=== PATIENT | female | born 1985 | race Hispanic/Latino ===

== ENCOUNTER 2017-10-17 13:11 | Emergency (ER) | payer OTHER, MEDICAID ==
[~2017-10-17 13:11] MED LIST: TRIA1TAB3 PO
[2017-10-17 14:06] LABS: BASOPHILS % (AUTO) 0.6 % (0.0-5.0); EOSINOPHILS % (AUTO) 3.9 % (0.0-8.0); HEMATOCRIT 38.7 % (36-48); LYMPHOCYTES % (AUTO) 21.5 % (21.0-51.0); MEAN CORPUSCULAR HEMOGLOBIN 28.2 pg (27.0-33.0); MEAN CORPUSCULAR HGB CONC 33.8 g/dL (32.0-36.0); MEAN CORPUSCULAR VOLUME 83.3 fL (79-99); PLATELET COUNT (AUTO) 203 K/uL (130-400); RED BLOOD CELL COUNT(AUTO) 4.65 MIL/uL (4.00-5.50); RED CELL DISTRIBUTION WIDTH 14.3 % (11.0-15.5); WHITE BLOOD COUNT (AUTO) 7.6 K/uL (4.8-10.8)
[2017-10-17 14:18] LABS: CREATININE 0.8 mg/dL (0.5-1.5); POTASSIUM 3.8 mmol/L (3.5-5.1)
[2017-10-17 14:59] LABS: APPEARANCE,URINE Clear (CLEAR); BILIRUBIN,URINE Negative (NEGATIVE); COLOR,URINE Dark Yellow (YELLOW); GLUCOSE, URINE (UA) Negative (NEGATIVE); KETONES,URINE 15 mg/dL (NEGATIVE); LEUKOCYTE ESTERASE ,URINE Small (NEGATIVE); NITRATE,URINE Negative (NEGATIVE); OCCULT BLOOD,URINE Moderate (NEGATIVE); PROTEIN,URINE Negative (NEGATIVE)
[2017-10-17 15:50] LABS: BACTERIA,URINE Few /HPF (None Seen); MUCUS,URINE Many LPF (None Seen); RBC,URINE None Seen /HPF (0-1)
== END 2017-10-17 15:15 | disposition home or self-care (01) ==
LOC: EDH 13:11
DX: O20.0 Threatened abortion (principal); Z3A.08 8 weeks gestation of pregnancy; Z98.890 Other specified postprocedural states
CPT/HCPCS: 36415; 76817; 80048; 81001; 84702; 85025; 86900; 86901

== ENCOUNTER 2018-01-03 07:50 | Emergency (ER) | payer MEDICAID, OTHER ==
[2018-01-03] MEDS ORDERED: TETRACAINE HCL 0.5% 4 ML OPHTH SOLN ONE (08:15)
[2018-01-03] MEDS ORDERED: FLUORESCEIN SODIUM 0.6 MG STRIP ONE (08:16)
== END 2018-01-03 09:48 | disposition home or self-care (01) ==
LOC: EDH 07:50
DX: H57.13 Ocular pain, bilateral (principal); H57.8 Other specified disorders of eye and adnexa; I10 Essential (primary) hypertension; Z98.890 Other specified postprocedural states

== ENCOUNTER 2018-01-30 18:03 | Emergency (ER) | payer OTHER ==
[2018-01-30 18:37] LABS: BASOPHILS % (AUTO) 0.4 % (0.0-5.0); EOSINOPHILS % (AUTO) 3.1 % (0.0-8.0); HEMATOCRIT 38.1 % (36-48); LYMPHOCYTES % (AUTO) 21.7 % (21.0-51.0); MEAN CORPUSCULAR HEMOGLOBIN 28.7 pg (27.0-33.0); MEAN CORPUSCULAR HGB CONC 34.4 g/dL (32.0-36.0); MEAN CORPUSCULAR VOLUME 83.6 fL (79-99); MONOCYTES % (AUTO) 5.4 % (3.0-13.0); NEUTROPHILS % (AUTO) 69.4 % (40.0-77.0); PLATELET COUNT (AUTO) 226 K/uL (130-400); RED BLOOD CELL COUNT(AUTO) 4.55 MIL/uL (4.00-5.50); RED CELL DISTRIBUTION WIDTH 14.3 % (11.0-15.5); WHITE BLOOD COUNT (AUTO) 7.9 K/uL (4.8-10.8)
[2018-01-30 18:49] LABS: CREATININE 0.7 mg/dL (0.5-1.5); POTASSIUM 3.9 mmol/L (3.5-5.1)
== END 2018-01-30 19:30 | disposition home or self-care (01) ==
LOC: EDH 18:03
DX: O20.0 Threatened abortion (principal); Z3A.08 8 weeks gestation of pregnancy
CPT/HCPCS: 36415; 76801; 80048; 84702; 85025

== ENCOUNTER 2018-06-09 10:27 | Observation (INO) | payer OTHER, MEDICAID ==
[~2018-06-09] VITALS: Ht 162.6 cm; Wt 155.6 kg
[2018-06-09] MEDS ORDERED: IPRATROPIUM/ALBUTEROL SULFATE 3 ML SOLUTION IH ONE (11:40)
[2018-06-09 11:46] LABS: BASOPHILS % (AUTO) 0.2 % (0.0-5.0); EOSINOPHILS % (AUTO) 1.6 % (0.0-8.0); HEMATOCRIT 37.3 % (36-48); LYMPHOCYTES % (AUTO) 11.6 % (21.0-51.0); MEAN CORPUSCULAR HEMOGLOBIN 28.6 pg (27.0-33.0); MEAN CORPUSCULAR HGB CONC 33.9 g/dL (32.0-36.0); MEAN CORPUSCULAR VOLUME 84.4 fL (79-99); MONOCYTES % (AUTO) 3.9 % (3.0-13.0); NEUTROPHILS % (AUTO) 82.7 % (40.0-77.0); PLATELET COUNT (AUTO) 250 K/uL (130-400); RED BLOOD CELL COUNT(AUTO) 4.41 MIL/uL (4.00-5.50); RED CELL DISTRIBUTION WIDTH 14.7 % (11.0-15.5); WHITE BLOOD COUNT (AUTO) 12.5 K/uL (4.8-10.8)
[2018-06-09 11:59] LABS: CREATININE 0.7 mg/dL (0.5-1.5); POTASSIUM 4.2 mmol/L (3.5-5.1)
[2018-06-09 12:05] LABS: ALBUMIN 2.7 g/dL (3.5-5.0); BILIRUBIN,DIRECT 0.1 mg/dL (0.0-0.3); BILIRUBIN,TOTAL 0.4 mg/dL (0.2-1.0); TOTAL PROTEIN, SERUM 7.2 g/dL (6.0-8.3)
[2018-06-09 12:23] LABS: APPEARANCE,URINE Cloudy (CLEAR); BILIRUBIN,URINE Negative (NEGATIVE); COLOR,URINE Dark Yellow (YELLOW); GLUCOSE, URINE (UA) TRACE mg/dL (NEGATIVE); KETONES,URINE 15 mg/dL (NEGATIVE); LEUKOCYTE ESTERASE ,URINE Moderate (NEGATIVE); NITRATE,URINE Negative (NEGATIVE); OCCULT BLOOD,URINE Negative (NEGATIVE); PH,URINE 5.5 (5.0-8.0); PROTEIN,URINE Trace (NEGATIVE)
[2018-06-09 12:43] LABS: BACTERIA,URINE Few /HPF (None Seen); MUCUS,URINE Moderate LPF (None Seen)
[2018-06-09 12:44] LABS: RBC,URINE 0-1 /HPF (0-1)
[2018-06-09] MEDS ORDERED: AZITHROMYCIN 250 MG TABLET PO ONE (14:08)
[2018-06-09 15:56] VITALS: BP 128/71
[2018-06-09] MEDS ORDERED: DIPHENHYDRAMINE HCL 25 MG CAPSULE PO SCH (16:00)
== END 2018-06-09 16:55 | disposition home or self-care (01) ==
LOC: EDH 10:27 → LDH 14:39
PROVIDERS: ADMIT Obstetrics & Gynecology; ATTEND Obstetrics & Gynecology
DX: O99.512 Diseases of the respiratory system complicating pregnancy, second trimester (principal); R05 Cough; O99.612 Diseases of the digestive system complicating pregnancy, second trimester; O09.512 Supervision of elderly primigravida, second trimester; K21.9 Gastro-esophageal reflux disease without esophagitis; Z3A.25 25 weeks gestation of pregnancy
CPT/HCPCS: 36415; 80048; 80076; 81001; 85025; 87486; 87797; 87804 ×2; 94640; 99285; G0378 ×2; Q0163

== ENCOUNTER 2018-06-22 21:58 | Observation (INO) | payer OTHER, MEDICAID ==
[~2018-06-22] VITALS: Ht 162.6 cm; Wt 151.0 kg
[2018-06-22] MEDS ORDERED: LACTATED RINGERS 1000ML 1,000 ML IV PRN (22:54)
[2018-06-22] MEDS ORDERED: LACTATED RINGERS 1000ML 1,000 ML IV ONE (23:04)
[2018-06-23] MEDS ORDERED: ACETAMINOPHEN EXTRA STRENGTH 500 MG TABLET PO SCH (01:15)
[2018-06-23 02:17] LABS: APPEARANCE,URINE Clear (CLEAR); BILIRUBIN,URINE Negative (NEGATIVE); COLOR,URINE Yellow (YELLOW); GLUCOSE, URINE (UA) TRACE mg/dL (NEGATIVE); KETONES,URINE Negative (NEGATIVE); LEUKOCYTE ESTERASE ,URINE Small (NEGATIVE); NITRATE,URINE Negative (NEGATIVE); OCCULT BLOOD,URINE Negative (NEGATIVE); PROTEIN,URINE Negative (NEGATIVE)
[2018-06-23 02:47] LABS: BACTERIA,URINE Rare /HPF (None Seen); RBC,URINE 0-1 /HPF (0-1); SQUAMOUS EPITHELIAL CELL,UR Moderate /HPF (0-2); WBC,URINE 0-1 /HPF (0-1)
[2018-06-23] MEDS ORDERED: CEFTRIAXONE SODIUM 1 GM IVP SCH (06:30)
== END 2018-06-23 08:15 | disposition home or self-care (01) ==
LOC: EDH 21:58 → LDH 21:59
PROVIDERS: ADMIT Obstetrics & Gynecology; ATTEND Obstetrics & Gynecology
DX: O60.02 Preterm labor without delivery, second trimester (principal); O99.612 Diseases of the digestive system complicating pregnancy, second trimester; K21.9 Gastro-esophageal reflux disease without esophagitis; O24.112 Pre-existing type 2 diabetes mellitus, in pregnancy, second trimester; Z3A.27 27 weeks gestation of pregnancy
CPT/HCPCS: 81001; 99285; G0378 ×10; J0696; J7120 ×3; 96360

== ENCOUNTER 2018-07-24 15:11 | Observation (INO) | payer OTHER, MEDICAID ==
[2018-07-24 16:32] LABS: BASOPHILS % (AUTO) 0.4 % (0.0-5.0); EOSINOPHILS % (AUTO) 1.1 % (0.0-8.0); HEMATOCRIT 36.9 % (36-48); LYMPHOCYTES % (AUTO) 16.1 % (21.0-51.0); MEAN CORPUSCULAR HEMOGLOBIN 28.1 pg (27.0-33.0); MEAN CORPUSCULAR HGB CONC 34.2 g/dL (32.0-36.0); MEAN CORPUSCULAR VOLUME 82.2 fL (79-99); NEUTROPHILS % (AUTO) 78.4 % (40.0-77.0); PLATELET COUNT (AUTO) 223 K/uL (130-400); RED BLOOD CELL COUNT(AUTO) 4.49 MIL/uL (4.00-5.50); RED CELL DISTRIBUTION WIDTH 14.6 % (11.0-15.5); WHITE BLOOD COUNT (AUTO) 9.2 K/uL (4.8-10.8)
[2018-07-24 16:33] LABS: APPEARANCE,URINE Cloudy (CLEAR); BILIRUBIN,URINE Negative (NEGATIVE); COLOR,URINE Yellow (YELLOW); GLUCOSE, URINE (UA) Negative (NEGATIVE); KETONES,URINE 15 mg/dL (NEGATIVE); LEUKOCYTE ESTERASE ,URINE Large (NEGATIVE); NITRATE,URINE Negative (NEGATIVE); OCCULT BLOOD,URINE Negative (NEGATIVE); PH,URINE 6.5 (5.0-8.0); PROTEIN,URINE Negative (NEGATIVE)
[2018-07-24 16:40] LABS: BACTERIA,URINE Few /HPF (None Seen); CREATININE 0.7 mg/dL (0.5-1.5); MUCUS,URINE Moderate LPF (None Seen); POTASSIUM 4.1 mmol/L (3.5-5.1); RBC,URINE None Seen /HPF (0-1)
[2018-07-24 16:44] LABS: INR 0.87 (0.85-1.15); PARTIAL THROMBOPLASTIN TIME 27.5 SEC (26.3-35.5); PROTHROMBIN TIME 9.2 SEC (9.6-11.6)
[2018-07-24 16:46] LABS: ALBUMIN 2.4 g/dL (3.5-5.0); BILIRUBIN,TOTAL 0.3 mg/dL (0.2-1.0); TOTAL PROTEIN, SERUM 6.7 g/dL (6.0-8.3); URIC ACID 2.8 mg/dL (2.6-7.2)
== END 2018-07-24 18:24 | disposition home or self-care (01) ==
LOC: LDH 15:11
PROVIDERS: ADMIT Obstetrics & Gynecology; ATTEND Obstetrics & Gynecology
DX: O26.893 Other specified pregnancy related conditions, third trimester (principal); R51 Headache; Z3A.33 33 weeks gestation of pregnancy
CPT/HCPCS: 36415; 80053; 81001; 84550; 85025; 85384; 85610; 85730; G0378 ×4

== ENCOUNTER 2018-07-28 11:48 | Emergency (ER) | payer OTHER, MEDICAID ==
[2018-07-28] MEDS ORDERED: ACETAMINOPHEN 325 MG TAB ONE ×2 (13:32→14:16)
[2018-07-28 14:40] LABS: BASOPHILS % (AUTO) 0.5 % (0.0-5.0); EOSINOPHILS % (AUTO) 0.7 % (0.0-8.0); HEMATOCRIT 36.3 % (36-48); LYMPHOCYTES % (AUTO) 15.6 % (21.0-51.0); MEAN CORPUSCULAR HEMOGLOBIN 28.1 pg (27.0-33.0); MEAN CORPUSCULAR VOLUME 82.5 fL (79-99); MONOCYTES % (AUTO) 4.3 % (3.0-13.0); NEUTROPHILS % (AUTO) 78.9 % (40.0-77.0); PLATELET COUNT (AUTO) 228 K/uL (130-400); RED CELL DISTRIBUTION WIDTH 14.8 % (11.0-15.5); WHITE BLOOD COUNT (AUTO) 9.8 K/uL (4.8-10.8)
[2018-07-28 14:52] LABS: HCG,QUAL RESULT POSITIVE (NEGATIVE)
[2018-07-28 14:53] LABS: APPEARANCE,URINE Cloudy (CLEAR); BILIRUBIN,URINE Negative (NEGATIVE); COLOR,URINE Yellow (YELLOW); GLUCOSE, URINE (UA) >=1000 mg/dL (NEGATIVE); KETONES,URINE Trace mg/dL (NEGATIVE); LEUKOCYTE ESTERASE ,URINE Small (NEGATIVE); NITRATE,URINE Positive (NEGATIVE); OCCULT BLOOD,URINE Negative (NEGATIVE); PH,URINE 5.5 (5.0-8.0); PROTEIN,URINE POS 1+ (NEGATIVE)
[2018-07-28 15:01] LABS: AMPHET/METH SCREEN,URINE NEGATIVE (NEGATIVE); BARBITURATE SCREEN, URINE NEGATIVE (NEGATIVE); BENZODIAZEPINES SCREEN,URINE NEGATIVE (NEGATIVE); CANNABINOID SCREEN,URINE NEGATIVE (NEGATIVE); COCAINE SCREEN,URINE NEGATIVE (NEGATIVE); OPIATE SCREEN,URINE NEGATIVE (NEGATIVE); PHENCYCLIDINE SCREEN,URINE NEGATIVE (NEGATIVE)
[2018-07-28 15:12] LABS: CREATININE 0.8 mg/dL (0.5-1.5); POTASSIUM 4.3 mmol/L (3.5-5.1)
[2018-07-28 15:17] LABS: AMORPHOUS SEDIMENT,UR Moderate /LPF (None Seen); BACTERIA,URINE Moderate /HPF (None Seen); MUCUS,URINE Many LPF (None Seen); RBC,URINE None Seen /HPF (0-1)
== END 2018-07-28 16:02 | disposition home or self-care (01) ==
LOC: EDH 11:48
DX: O23.43 Unspecified infection of urinary tract in pregnancy, third trimester (principal); O16.3 Unspecified maternal hypertension, third trimester; O24.913 Unspecified diabetes mellitus in pregnancy, third trimester; R55 Syncope and collapse; Z3A.33 33 weeks gestation of pregnancy
CPT/HCPCS: 36415; 80048; 80305; 81001; 81025; 82550; 84484; 85025; 93005

== ENCOUNTER 2018-08-05 10:03 | Observation (INO) | payer OTHER, MEDICAID ==
[2018-08-05 10:32] LABS: APPEARANCE,URINE Clear (CLEAR); BILIRUBIN,URINE Negative (NEGATIVE); COLOR,URINE Yellow (YELLOW); GLUCOSE, URINE (UA) Negative (NEGATIVE); KETONES,URINE Negative (NEGATIVE); LEUKOCYTE ESTERASE ,URINE Moderate (NEGATIVE); NITRATE,URINE Negative (NEGATIVE); OCCULT BLOOD,URINE Negative (NEGATIVE); PROTEIN,URINE Trace (NEGATIVE)
[2018-08-05 11:07] LABS: BACTERIA,URINE Few /HPF (None Seen); RBC,URINE 0-1 /HPF (0-1); SQUAMOUS EPITHELIAL CELL,UR Few /HPF (0-2)
[2018-08-05] MEDS ORDERED: ACETAMINOPHEN EXTRA STRENGTH 500 MG TABLET PO SCH (13:00)
[2018-08-05 13:13] LABS: BASOPHILS % (AUTO) 0.3 % (0.0-5.0); EOSINOPHILS % (AUTO) 1.5 % (0.0-8.0); HEMATOCRIT 35.7 % (36-48); LYMPHOCYTES % (AUTO) 16.6 % (21.0-51.0); MEAN CORPUSCULAR HGB CONC 34.1 g/dL (32.0-36.0); MEAN CORPUSCULAR VOLUME 82.1 fL (79-99); MONOCYTES % (AUTO) 4.5 % (3.0-13.0); NEUTROPHILS % (AUTO) 77.1 % (40.0-77.0); PLATELET COUNT (AUTO) 208 K/uL (130-400); RED BLOOD CELL COUNT(AUTO) 4.35 MIL/uL (4.00-5.50); RED CELL DISTRIBUTION WIDTH 15.4 % (11.0-15.5); WHITE BLOOD COUNT (AUTO) 9.4 K/uL (4.8-10.8)
[2018-08-05 13:22] LABS: CREATININE 0.8 mg/dL (0.5-1.5); POTASSIUM 4.4 mmol/L (3.5-5.1)
[2018-08-05 13:25] LABS: INR 0.88 (0.85-1.15); PARTIAL THROMBOPLASTIN TIME 26.5 SEC (26.3-35.5); PROTHROMBIN TIME 9.3 SEC (9.6-11.6)
[2018-08-05 13:27] LABS: ALBUMIN 2.3 g/dL (3.5-5.0); BILIRUBIN,TOTAL 0.3 mg/dL (0.2-1.0); TOTAL PROTEIN, SERUM 6.1 g/dL (6.0-8.3); URIC ACID 3.6 mg/dL (2.6-7.2)
== END 2018-08-05 15:59 | disposition home or self-care (01) ==
LOC: EDH 10:03 → LDH 10:04
PROVIDERS: ADMIT Obstetrics & Gynecology; ATTEND Obstetrics & Gynecology
DX: O26.893 Other specified pregnancy related conditions, third trimester (principal); R51 Headache; R03.0 Elevated blood-pressure reading, without diagnosis of hypertension; Z3A.35 35 weeks gestation of pregnancy; Z79.01 Long term (current) use of anticoagulants
CPT/HCPCS: 36415; 76819; 80053; 81001; 84550; 85025; 85384; 85610; 85730; 99285; G0378 ×6

== ENCOUNTER 2018-08-25 14:30 | Observation (INO) | payer OTHER, MEDICAID ==
[~2018-08-25] VITALS: Ht 162.6 cm; Wt 159.2 kg
[2018-08-25 15:12] LABS: APPEARANCE,URINE Cloudy (CLEAR); BILIRUBIN,URINE Negative (NEGATIVE); COLOR,URINE Dark Yellow (YELLOW); GLUCOSE, URINE (UA) 500 mg/dL (NEGATIVE); KETONES,URINE Trace mg/dL (NEGATIVE); LEUKOCYTE ESTERASE ,URINE Moderate (NEGATIVE); NITRATE,URINE Negative (NEGATIVE); OCCULT BLOOD,URINE Negative (NEGATIVE); PROTEIN,URINE POS 1+ (NEGATIVE)
[2018-08-25 15:31] LABS: BACTERIA,URINE Moderate /HPF (None Seen); MUCUS,URINE Many LPF (None Seen); RBC,URINE None Seen /HPF (0-1); SQUAMOUS EPITHELIAL CELL,UR Moderate /HPF (0-2)
[2018-08-25] MEDS ORDERED: LACTATED RINGERS 1000ML 1,000 ML IV SCH (15:45)
[2018-08-25] MEDS ORDERED: CEFTRIAXONE SODIUM 1 GM IV ONE (17:00)
== END 2018-08-25 17:50 | disposition home or self-care (01) ==
LOC: LDH 14:30
PROVIDERS: ADMIT Obstetrics & Gynecology; ATTEND Obstetrics & Gynecology
DX: O99.89 Other specified diseases and conditions complicating pregnancy, childbirth and the puerperium (principal); M54.5 Low back pain; R10.2 Pelvic and perineal pain; O26.893 Other specified pregnancy related conditions, third trimester; O36.8130 Decreased fetal movements, third trimester, not applicable or unspecified; O09.523 Supervision of elderly multigravida, third trimester; Z3A.36 36 weeks gestation of pregnancy
CPT/HCPCS: 76819; 81001; 82948; 96365; G0378 ×3; J0696; J7120; 96360

== ENCOUNTER 2018-08-27 15:33 | Observation (INO) | payer OTHER, MEDICAID ==
[~2018-08-27] VITALS: Ht 162.6 cm; Wt 161.0 kg
[2018-08-27 17:27] LABS: BASOPHILS % (AUTO) 0.1 % (0.0-5.0); EOSINOPHILS % (AUTO) 1.3 % (0.0-8.0); HEMATOCRIT 34.9 % (36-48); LYMPHOCYTES % (AUTO) 15.2 % (21.0-51.0); MEAN CORPUSCULAR HEMOGLOBIN 27.2 pg (27.0-33.0); MEAN CORPUSCULAR HGB CONC 33.2 g/dL (32.0-36.0); MEAN CORPUSCULAR VOLUME 81.9 fL (79-99); MONOCYTES % (AUTO) 4.1 % (3.0-13.0); NEUTROPHILS % (AUTO) 79.3 % (40.0-77.0); PLATELET COUNT (AUTO) 188 K/uL (130-400); RED BLOOD CELL COUNT(AUTO) 4.26 MIL/uL (4.00-5.50); RED CELL DISTRIBUTION WIDTH 15.3 % (11.0-15.5); WHITE BLOOD COUNT (AUTO) 9.6 K/uL (4.8-10.8)
[2018-08-27 17:35] LABS: APPEARANCE,URINE Cloudy (CLEAR); BILIRUBIN,URINE Negative (NEGATIVE); COLOR,URINE Yellow (YELLOW); GLUCOSE, URINE (UA) Negative (NEGATIVE); KETONES,URINE Trace mg/dL (NEGATIVE); LEUKOCYTE ESTERASE ,URINE Moderate (NEGATIVE); NITRATE,URINE Negative (NEGATIVE); OCCULT BLOOD,URINE Negative (NEGATIVE); PROTEIN,URINE POS 1+ (NEGATIVE)
[2018-08-27 17:40] LABS: CREATININE 0.8 mg/dL (0.5-1.5); POTASSIUM 3.8 mmol/L (3.5-5.1)
[2018-08-27 17:43] LABS: INR 0.86 (0.85-1.15); PARTIAL THROMBOPLASTIN TIME 25.8 SEC (26.3-35.5); PROTHROMBIN TIME 9.1 SEC (9.6-11.6)
[2018-08-27 17:44] LABS: ALBUMIN 2.3 g/dL (3.5-5.0); BILIRUBIN,TOTAL 0.4 mg/dL (0.2-1.0); TOTAL PROTEIN, SERUM 6.2 g/dL (6.0-8.3); URIC ACID 3.6 mg/dL (2.6-7.2)
[2018-08-27 18:32] LABS: BACTERIA,URINE Few /HPF (None Seen); RBC,URINE 0-1 /HPF (0-1)
[2018-08-27 18:33] LABS: MUCUS,URINE Moderate LPF (None Seen); SQUAMOUS EPITHELIAL CELL,UR Moderate /HPF (0-2); YEAST,URINE BUDDING Few /HPF (None Seen)
[2018-08-29 08:19] LABS: HEPATITIS Bs ANTIGEN SCREEN P Negative (Negative)
== END 2018-08-27 18:42 | disposition home or self-care (01) ==
LOC: LDH 15:33
PROVIDERS: ADMIT Obstetrics & Gynecology; ATTEND Obstetrics & Gynecology
DX: O12.03 Gestational edema, third trimester (principal); O99.613 Diseases of the digestive system complicating pregnancy, third trimester; K21.9 Gastro-esophageal reflux disease without esophagitis; O09.523 Supervision of elderly multigravida, third trimester; Z3A.38 38 weeks gestation of pregnancy; Z79.01 Long term (current) use of anticoagulants
CPT/HCPCS: 36415; 80053; 81001; 84550; 85025; 85384; 85610; 85730; 86592; 86850; 86900; 86901; 87340; G0378 ×4

== ENCOUNTER 2018-10-21 05:30 | Day surgery (SDC) | payer OTHER, MEDICAID ==
[2018-10-20 10:53] VITALS: BP 155/81
[2018-10-20 11:12] LABS: BASOPHILS % (AUTO) 0.5 % (0.0-5.0); EOSINOPHILS % (AUTO) 5.6 % (0.0-8.0); HEMATOCRIT 36.4 % (36-48); LYMPHOCYTES % (AUTO) 27.9 % (21.0-51.0); MEAN CORPUSCULAR HEMOGLOBIN 27.3 pg (27.0-33.0); MEAN CORPUSCULAR VOLUME 80.3 fL (79-99); MONOCYTES % (AUTO) 4.4 % (3.0-13.0); NEUTROPHILS % (AUTO) 61.6 % (40.0-77.0); PLATELET COUNT (AUTO) 235 K/uL (130-400); RED BLOOD CELL COUNT(AUTO) 4.53 MIL/uL (4.00-5.50); RED CELL DISTRIBUTION WIDTH 14.7 % (11.0-15.5); WHITE BLOOD COUNT (AUTO) 6.9 K/uL (4.8-10.8)
[~2018-10-21] VITALS: Ht 162.6 cm; Wt 140.1 kg
[2018-10-21] VITALS (19 sets, daily range): BP systolic 122–148; BP diastolic 67–87
[~2018-10-21 05:30] MED LIST changes: +LACTATED RINGERS 1000ML 1,000 ML IV SCH; -TRIA1TAB3 PO
--- NOTE | 2018-10-21 06:08 | NUR ---
VALUABLES: CLOTHING, JEWELRY - ONE WHITE COLOR PAIR OF EARRINGS, 2 WHITE COLOR COATED RINGS, CELL PHONE AND PURSE GIVEN TO SPOUSE.
[2018-10-21] MEDS ORDERED: PROPOFOL 10 MG/ML 20ML VIAL IV ONE (06:37)
[2018-10-21] MEDS ORDERED: LIDOCAINE PF 2% 5ML ABBOJECT ONE (06:37)
[2018-10-21] MEDS ORDERED: ONDANSETRON HCL 4 MG/2 ML VIAL ONE (06:38)
[2018-10-21] MEDS ORDERED: MIDAZOLAM HCL 1 MG/ML 2ML VIAL ONE (06:38)
[2018-10-21] MEDS ORDERED: ROCURONIUM 10MG/1ML SYR 10 MG/ML ML ONE (06:38)
[2018-10-21] MEDS ORDERED: FENTANYL CITRATE PF 50 MCG/1 ML 2ML VIAL ONE ×2 (06:40→07:06)
[2018-10-21] MEDS ORDERED: MEPERIDINE-PF 25 MG/ML SYG ONE ×2 (07:45→07:54)
[2018-10-21] MEDS ORDERED: IPRATROPIUM/ALBUTEROL SULFATE 3 ML SOLUTION IH ONE (08:22)
--- NOTE | 2018-10-21 08:45 | NUR ---
ASSESSMENT RECEIVED PT FROM JVOI RN. PT DOING WELL. BAND AID X2 DRY AND INTACT. OB PAD WITH SCANT BLEEDING.
--- NOTE | 2018-10-21 09:40 | NUR ---
DISCHARGE ORAL AND WRITTEN DISCHARGE INSTRUCTIONS GIVEN TO PT AND PTS . PRESCRIPTION GIVEN TO . NO OTHER QUESTIONS AT THIS TIME.
== END 2018-10-21 09:40 | disposition home or self-care (01) ==
LOC: DAH 05:30
PROVIDERS: ATTEND Obstetrics & Gynecology
DX: Z30.2 Encounter for sterilization (principal); K21.9 Gastro-esophageal reflux disease without esophagitis; Z80.49 Family history of malignant neoplasm of other genital organs; Z82.49 Family history of ischemic heart disease and other diseases of the circulatory system; Z83.3 Family history of diabetes mellitus; E66.01 Morbid (severe) obesity due to excess calories; Z68.43 Body mass index [BMI] 50.0-59.9, adult; Z79.899 Other long term (current) drug therapy; O13.9 Gestational [pregnancy-induced] hypertension without significant proteinuria, unspecified trimester; O24.419 Gestational diabetes mellitus in pregnancy, unspecified control
CPT/HCPCS: 36415; 58670; 84702; 85025; 86850; 86900; 86901; 94640; A4215; A4351; A4452; A4606; C1769 ×2; J2001; J2175 ×2; J2250; J2405; J2704; J3010 ×2; J7120 ×2

== ENCOUNTER → 2019-04-30 | Outpatient (CLI) | payer OTHER ==
[2019-04-30 11:31] LABS: HEMATOCRIT 39.1 % (36-48); MEAN CORPUSCULAR HEMOGLOBIN 26.5 pg (27.0-33.0); MEAN CORPUSCULAR HGB CONC 32.9 g/dL (32.0-36.0); MEAN CORPUSCULAR VOLUME 80.5 fL (79-99); PLATELET COUNT (AUTO) 213 K/uL (130-400); RED BLOOD CELL COUNT(AUTO) 4.85 MIL/uL (4.00-5.50); RED CELL DISTRIBUTION WIDTH 15.3 % (11.0-15.5); WHITE BLOOD COUNT (AUTO) 8.2 K/uL (4.8-10.8)
[2019-04-30 11:40] LABS: HEMOGLOBIN A1C 5.5 % (4.0-6.0)
[2019-04-30 11:47] LABS: NEUTROPHILS % (AUTO) 72.8 % (40.0-77.0)
[2019-04-30 11:48] LABS: BASOPHILS % (AUTO) 0.3 % (0.0-5.0); EOSINOPHILS % (AUTO) 3.8 % (0.0-8.0); LYMPHOCYTES % (AUTO) 18.7 % (21.0-51.0); MONOCYTES % (AUTO) 4.4 % (3.0-13.0)
[2019-04-30 11:51] LABS: ALBUMIN 3.6 g/dL (3.5-5.0); BILIRUBIN,TOTAL 0.5 mg/dL (0.2-1.0); CREATININE 0.8 mg/dL (0.5-1.5); POTASSIUM 4.4 mmol/L (3.5-5.1); THYROID STIMULATING HORMONE 1.11 uIU/mL (0.36-3.74); TOTAL PROTEIN, SERUM 7.5 g/dL (6.0-8.3)
== END | disposition home or self-care (01) ==
LOC: LAB 10:47
PROVIDERS: ATTEND Nurse Practitioner Adult Health
DX: Z00.00 Encounter for general adult medical examination without abnormal findings (principal)
CPT/HCPCS: 36415; 80053; 80061; 82306; 83036; 84443; 85025

== ENCOUNTER → 2019-05-06 | Outpatient (CLI) | payer OTHER | END | disposition home or self-care (01) | LOC: RAH 13:22 | PROVIDERS: ATTEND Nurse Practitioner Adult Health | DX: E04.9 Nontoxic goiter, unspecified (principal) | CPT/HCPCS: 76536 ==

== ENCOUNTER → 2019-06-08 | Outpatient (CLI) | payer OTHER ==
[~2019-06-08] MED LIST changes: +IOHEXOL-350 50ML VIAL IV ONE; -LACTATED RINGERS 1000ML 1,000 ML IV SCH
== END | disposition home or self-care (01) ==
LOC: RAH 13:48
PROVIDERS: ATTEND Nurse Practitioner Adult Health
DX: R51 Headache (principal)
CPT/HCPCS: 70470; Q9967

== ENCOUNTER 2019-06-23 11:38 | Emergency (ER) | payer OTHER ==
[2019-06-23] MEDS ORDERED: KETOROLAC TROMETHAMINE 60 MG/2 ML VIAL ONE (11:55)
[2019-06-23] MEDS ORDERED: LIDOCAINE 5% TOPICAL PATCH TP ONE (11:56)
== END 2019-06-23 12:59 | disposition home or self-care (01) ==
LOC: EDH 11:38
DX: S23.3XXA Sprain of ligaments of thoracic spine, initial encounter (principal); I10 Essential (primary) hypertension; V49.49XA Driver injured in collision with other motor vehicles in traffic accident, initial encounter; Y93.89 Activity, other specified; Y92.89 Other specified places as the place of occurrence of the external cause; Y99.8 Other external cause status
CPT/HCPCS: 81025; 96372; 99283; J1885

== ENCOUNTER → 2019-08-22 | Outpatient (CLI) | payer OTHER | END | disposition home or self-care (01) | LOC: SHCH 08:29 | PROVIDERS: ATTEND Internal Medicine Cardiovascular Disease | DX: R00.2 Palpitations (principal) | CPT/HCPCS: 93306 ==

== ENCOUNTER 2019-09-05 20:41 | Emergency (ER) | payer OTHER ==
[2019-09-05] MEDS ORDERED: ACETAMINOPHEN-CODEINE 300/30MG TAB ONE (21:00)
[2019-09-05] MEDS ORDERED: CEFTRIAXONE SODIUM 1 GM ONE (21:00)
[2019-09-05] MEDS ORDERED: LIDOCAINE HCL-MPF 1% 2ML VIAL ONE (21:00)
[2019-09-05] MEDS ORDERED: KETOROLAC TROMETHAMINE 60 MG/2 ML VIAL ONE (21:00)
== END 2019-09-05 21:34 | disposition home or self-care (01) ==
LOC: EDH 20:41
DX: K02.9 Dental caries, unspecified (principal); I10 Essential (primary) hypertension
CPT/HCPCS: 96372 ×2; 99284; J0696; J1885; J3490

== ENCOUNTER → 2019-10-14 | Outpatient (CLI) | payer OTHER ==
[2019-10-14 08:48] LABS: BASOPHILS % (AUTO) 0.3 % (0.0-5.0); HEMATOCRIT 38.7 % (36-48); LYMPHOCYTES % (AUTO) 20.9 % (21.0-51.0); MEAN CORPUSCULAR HEMOGLOBIN 23.8 pg (27.0-33.0); MEAN CORPUSCULAR VOLUME 79.5 fL (79-99); MONOCYTES % (AUTO) 5.4 % (3.0-13.0); NEUTROPHILS % (AUTO) 72.1 % (40.0-77.0); PLATELET COUNT (AUTO) 261 K/uL (130-400); RED BLOOD CELL COUNT(AUTO) 4.87 MIL/uL (4.00-5.50); RED CELL DISTRIBUTION WIDTH 15.9 % (11.0-15.5); WHITE BLOOD COUNT (AUTO) 9.7 K/uL (4.8-10.8)
[2019-10-14 09:17] LABS: ALBUMIN 3.5 g/dL (3.5-5.0); BILIRUBIN,TOTAL 0.7 mg/dL (0.2-1.0); CREATININE 0.9 mg/dL (0.5-1.5); POTASSIUM 3.4 mmol/L (3.5-5.1); THYROID STIMULATING HORMONE 0.99 uIU/mL (0.36-3.74); TOTAL PROTEIN, SERUM 7.3 g/dL (6.0-8.3)
== END | disposition home or self-care (01) ==
LOC: LAB 08:08
PROVIDERS: ATTEND Nurse Practitioner Adult Health
DX: Z00.00 Encounter for general adult medical examination without abnormal findings (principal); M60.9 Myositis, unspecified; M25.50 Pain in unspecified joint
CPT/HCPCS: 36415; 80053; 82550; 84443; 85025; 86038; 86140; 86215; 86235; 86431

== ENCOUNTER 2020-02-09 05:46 | Observation (INO) | payer OTHER ==
[2020-02-08 12:07] LABS: BASOPHILS % (AUTO) 0.3 % (0.0-5.0); EOSINOPHILS % (AUTO) 1.6 % (0.0-8.0); HEMATOCRIT 37.5 % (36-48); LYMPHOCYTES % (AUTO) 20.1 % (21.0-51.0); MEAN CORPUSCULAR HEMOGLOBIN 23.9 pg (27.0-33.0); MEAN CORPUSCULAR HGB CONC 30.1 g/dL (32.0-36.0); MEAN CORPUSCULAR VOLUME 79.4 fL (79-99); MONOCYTES % (AUTO) 4.7 % (3.0-13.0); NEUTROPHILS % (AUTO) 72.9 % (40.0-77.0); PLATELET COUNT (AUTO) 215 K/uL (130-400); RED BLOOD CELL COUNT(AUTO) 4.72 MIL/uL (4.00-5.50); RED CELL DISTRIBUTION WIDTH 14.9 % (11.0-15.5)
[2020-02-08 12:59] VITALS: BP 143/89
[2020-02-09] VITALS (24 sets, daily range): BP systolic 101–127; BP diastolic 54–72
[~2020-02-09] VITALS: Ht 162.6 cm; Wt 149.2 kg
[~2020-02-09 05:46] MED LIST changes: +AMLO2.5T4 PO; +BISACODYL 10 MG SUPP.RECT RC PRN; +ERGO500014 PO; -IOHEXOL-350 50ML VIAL IV ONE; +IRBE300T18 PO; +MEPERIDINE-PF 75 MG/ML SYG IM PRN; +METO-409 PO; +ONDANSETRON HCL 4 MG/2 ML VIAL IVP PRN; +PROMETHAZINE HCL 25 MG/ML 1ML AMPULE IM PRN
[2020-02-09] MEDS ORDERED: CEFAZOLIN SODIUM 1 GM VIAL ONE (07:20)
[2020-02-09] MEDS: LACTATED RINGERS 1000ML 1,000 ML IV SCH ×3 (07:51→10:35)
[2020-02-09] MEDS ORDERED: CEFAZOLIN 3GM /D5W 100ML 100 ML IV PRN (08:00)
[2020-02-09] MEDS ORDERED: LIDOCAINE PF 2% 5ML ABBOJECT ONE ×2 (08:54→08:56)
[2020-02-09] MEDS ORDERED: PROPOFOL 10 MG/ML 20ML VIAL IV ONE (08:55)
[2020-02-09] MEDS ORDERED: GLYCOPYRROLATE 1 MG/5 ML SYRINGE ONE (08:55)
[2020-02-09] MEDS ORDERED: ROCURONIUM 10MG/1ML SYR 10 MG/ML ML ONE (08:55)
[2020-02-09] MEDS ORDERED: NEOSTIGMINE 5MG/5ML SYR IV ONE (08:55)
[2020-02-09] MEDS ORDERED: MIDAZOLAM HCL 1 MG/ML 2ML VIAL ONE (08:55)
[2020-02-09] MEDS ORDERED: ONDANSETRON HCL 4 MG/2 ML VIAL ONE (08:55)
[2020-02-09] MEDS ORDERED: FENTANYL CITRATE PF 50 MCG/1 ML 2ML VIAL ONE ×2 (08:56→10:19)
[2020-02-09] MEDS ORDERED: SUCCINYLCHOLINE CHLORIDE 20 MG/ML 10 ML VIAL ONE (09:05)
[2020-02-09] MEDS ORDERED: MEPERIDINE-PF 25 MG/ML SYG ONE ×2 (10:58→11:09)
[2020-02-09] MEDS ORDERED: MEPERIDINE-PF 100 MG/ML SYG ONE ×3 (12:01→23:41)
[2020-02-09] MEDS: PROMETHAZINE HCL 25 MG/ML 1ML AMPULE IM PRN ×3 (12:04→23:44)
[2020-02-09] MEDS: ACETAMINOPHEN-CODEINE 300/30MG TAB PO PRN (13:38)
[2020-02-09] MEDS: DEXTROSE 5 %-0.45 % NACL 1,000 ML IV SCH (18:48)
--- NOTE | 2020-02-09 19:45 | NUR ---
KURT ANDRÉS REMOVED, TOO TIGHT AND UNCOMFORTABLE Addendum: 02/10/20 at 0324 by ARIEL AGUILAR LVN Amended: Links added.
--- NOTE | 2020-02-09 23:57 | NUR ---
MEDICATED WITH 75 MG DEMEROL IM , 25 MG WASTED, GIVEN WITH PHENERGAN 25 MG IM
[2020-02-10] MEDS: DEXTROSE 5 %-0.45 % NACL 1,000 ML IV SCH (00:48)
[2020-02-10 03:55] VITALS: BP 104/57
[2020-02-10 07:27] VITALS: BP 113/72
[2020-02-10 08:14] LABS: MEAN CORPUSCULAR HEMOGLOBIN 24.2 pg (27.0-33.0); MEAN CORPUSCULAR HGB CONC 30.3 g/dL (32.0-36.0); MEAN CORPUSCULAR VOLUME 79.8 fL (79-99); RED BLOOD CELL COUNT(AUTO) 4.01 MIL/uL (4.00-5.50); RED CELL DISTRIBUTION WIDTH 14.8 % (11.0-15.5); WHITE BLOOD COUNT (AUTO) 10.6 K/uL (4.8-10.8)
[2020-02-10] MEDS: DOCUSATE SODIUM 100 MG CAP PO PRN ×2 (08:32→21:23)
[2020-02-10] MEDS: HYDROCODONE/ACETAMINOPHEN 5/325 MG TAB PO PRN ×2 (08:32→16:03)
[2020-02-10] MEDS: SIMETHICONE 80 MG TAB.CHEW PO PRN ×3 (08:32→21:23)
[2020-02-10] MEDS: IBUPROFEN 600 MG TABLET PO PRN ×2 (11:21→21:25)
[2020-02-10 11:44] VITALS: BP 117/72
[2020-02-10 15:23] VITALS: BP 113/65
[2020-02-10 19:28] VITALS: BP 117/68
--- NOTE | 2020-02-10 20:00 | NUR ---
ASSESSMENT DONE AND PATIENT STATES ONLY HAVING MILD CRAMPING AT THIS TIME. INSTRUCTED PATIENT THAT SHE WILL BE MEDICATED WITH MOTRIN WITH HER EVENING MEDS. PATIENT HAS 2+ EDEMA TO LOWER EXTREMITIES. LOCHIA IS SMALL AND FUNDUS IS FIRM WITH NEGATIVE BASHIR'S SIGN. Addendum: 02/11/20 at 0312 by CHIQUI BRIONES RN CHARTED IN ERROR
--- NOTE | 2020-02-10 20:10 | NUR ---
PATIENT ASSESSED AND WAS INFORMED ON NEED TO VOID AND MEASURE RESIDUAL AND INDICATED SHE HAD JUST VOIDED 2 HOURS EARLIER AND WAS NOT DUE UNTIL 2200. PATIENT OTHERWISE STABLE.
--- NOTE | 2020-02-10 22:00 | NUR ---
PATIENT VOIDED 100CC AND HAD 100CC RESIDUAL. WALKER CATHETER CONNECTED AND DRESSING CHANGE DONE. SUPRAPUBIC AREA CLEANED WITH ALCOHOL SWABS AND DRAIN SPONGES APPLIED AND TAPED WITH PAPER TAPE.
[2020-02-10 23:48] VITALS: BP 120/63
--- NOTE | 2020-02-11 00:30 | NUR ---
PATIENT RESTING AND DENIES PAIN.
[2020-02-11 03:39] VITALS: BP 120/71
[2020-02-11 07:26] VITALS: BP 116/59
--- NOTE | 2020-02-11 08:10 | NUR ---
LUAN CLEMENT NP ROUNDING ON PATIENT. DISCHARGE POC DISCUSSED WITH PATIENT. PATIENT OKAY FOR DISCHARGE.
[2020-02-11] MEDS: DOCUSATE SODIUM 100 MG CAP PO PRN (09:15)
[2020-02-11] MEDS: SIMETHICONE 80 MG TAB.CHEW PO PRN (09:15)
[2020-02-11] MEDS: IBUPROFEN 600 MG TABLET PO PRN (09:16)
--- NOTE | 2020-02-11 09:50 | NUR ---
ASSESSMENT DONE AT 0800. WALKER CATHETER DISCONNECTED FROM WALKER BAG. REEDUCATED PATIENT ON BLADDER TRAINING. POSITIVE PATIENT TEACH BACK UTILIZED.
[2020-02-11] MEDS: ACETAMINOPHEN-CODEINE 300/30MG TAB PO PRN (11:02)
[2020-02-11 11:24] VITALS: BP 126/67
--- NOTE | 2020-02-11 11:50 | NUR ---
PATIENT REPORTS VOIDING 250ML AND 0 RESIDUAL FROM SUPRAPUBIC CATHETER. DISCHARGE INFORMATION. REVIEWED WITH PATIENT. DRESSING CHANGE AND INCISION CARE REVIEWED WITH PATIENT. PATIENT VOICED UNDERSTANDING ON ALL INFORMATION.
--- NOTE | 2020-02-11 12:25 | NUR ---
PATIENT LEFT UNIT VIA WHEELCHAIR WITH BELONGINGS IN HAND. PERSONAL VEHICLE USED FOR TRANSPORTATION. NO COMPLAINTS OR CONCERNS ADDRESSED FROM PATIENT ON DISCHARGE.
== END 2020-02-11 12:25 | disposition home or self-care (01) ==
LOC: DAH 05:46 → WSH 11:50 → DAH 18:00 → WSH 20:00
PROVIDERS: ADMIT Obstetrics & Gynecology; ATTEND Obstetrics & Gynecology
DX: N92.1 Excessive and frequent menstruation with irregular cycle (principal); N92.4 Excessive bleeding in the premenopausal period; N39.3 Stress incontinence (female) (male); R87.619 Unspecified abnormal cytological findings in specimens from cervix uteri; N94.6 Dysmenorrhea, unspecified; K46.9 Unspecified abdominal hernia without obstruction or gangrene; I10 Essential (primary) hypertension; K21.9 Gastro-esophageal reflux disease without esophagitis; G43.909 Migraine, unspecified, not intractable, without status migrainosus; Z86.32 Personal history of gestational diabetes; Z79.899 Other long term (current) drug therapy
CPT/HCPCS: 36415 ×2; 51040; 57288; 58263; 84703; 85025; 85027; 86850; 86900; 86901; 96372; A4215; A4221; A4222; A4223; A4344; A4606; A4663; A4930 ×2; A6260; C1771; G0168; G0378 ×39; J0330; J0690; J2001 ×2; J2175 ×5; J2250; J2405; J2550 ×3; J2704; J2710; J3010 ×2; J3490; J7120 ×2

== ENCOUNTER → 2020-03-14 | Outpatient (CLI) | payer OTHER | END | disposition home or self-care (01) | LOC: RAH 11:09 | PROVIDERS: ATTEND Nurse Practitioner Adult Health | DX: N28.89 Other specified disorders of kidney and ureter (principal) ==

== ENCOUNTER 2020-05-03 09:15 | Emergency (ER) | payer OTHER ==
[~2020-05-03 09:15] MED LIST changes: -BISACODYL 10 MG SUPP.RECT RC PRN; -MEPERIDINE-PF 75 MG/ML SYG IM PRN; -ONDANSETRON HCL 4 MG/2 ML VIAL IVP PRN; -PROMETHAZINE HCL 25 MG/ML 1ML AMPULE IM PRN
== END 2020-05-03 11:20 | disposition home or self-care (01) ==
LOC: EDH 09:15
DX: U07.1 COVID-19 (principal); J06.9 Acute upper respiratory infection, unspecified; I10 Essential (primary) hypertension; Z90.710 Acquired absence of both cervix and uterus
CPT/HCPCS: 87426; 99283; U0003

== ENCOUNTER → 2020-10-05 | Outpatient (CLI) | payer OTHER ==
[2020-10-05 09:20] LABS: BASOPHILS % (AUTO) 0.3 % (0.0-5.0); EOSINOPHILS % (AUTO) 1.3 % (0.0-8.0); HEMATOCRIT 44.5 % (36-48); LYMPHOCYTES % (AUTO) 18.2 % (21.0-51.0); MEAN CORPUSCULAR HEMOGLOBIN 26.9 pg (27.0-33.0); MEAN CORPUSCULAR HGB CONC 31.5 g/dL (32.0-36.0); MEAN CORPUSCULAR VOLUME 85.4 fL (79-99); MONOCYTES % (AUTO) 4.1 % (3.0-13.0); NEUTROPHILS % (AUTO) 75.7 % (40.0-77.0); PLATELET COUNT (AUTO) 220 K/uL (130-400); RED BLOOD CELL COUNT(AUTO) 5.21 MIL/uL (4.00-5.50); WHITE BLOOD COUNT (AUTO) 9.3 K/uL (4.8-10.8)
[2020-10-05 09:39] LABS: ALBUMIN 3.7 g/dL (3.5-5.0); BILIRUBIN,TOTAL 0.6 mg/dL (0.2-1.0); CREATININE 0.9 mg/dL (0.5-1.5); CRP QUANTITATIVE 13.8 mg/L (0.00-9.0); POTASSIUM 4.2 mmol/L (3.5-5.1); TOTAL PROTEIN, SERUM 7.7 g/dL (6.0-8.3)
[2020-10-05 10:34] LABS: ERYTHROCYTE SEDIMENTATION RATE 35 MM/HR (0-20)
== END | disposition home or self-care (01) ==
LOC: LAB 08:14
PROVIDERS: ATTEND Internal Medicine
DX: M06.4 Inflammatory polyarthropathy (principal); R79.82 Elevated C-reactive protein (CRP)
CPT/HCPCS: 36415; 80053; 82306; 85025; 85651; 86140; 86200; 86431; 86812

== ENCOUNTER 2021-01-19 00:18 | Emergency (ER) | payer OTHER ==
[~2021-01-19 00:18] MED LIST changes: -ERGO500014 PO; +ERGO500093 PO
== END 2021-01-19 01:46 | disposition home or self-care (01) ==
LOC: EDH 00:18
DX: G43.009 Migraine without aura, not intractable, without status migrainosus (principal); F41.1 Generalized anxiety disorder; I10 Essential (primary) hypertension; F31.9 Bipolar disorder, unspecified; Z90.710 Acquired absence of both cervix and uterus
CPT/HCPCS: 99281

== ENCOUNTER → 2021-02-21 | Outpatient (CLI) | payer OTHER ==
[~2021-02-21] MED LIST changes: +ERGO500014 PO; -ERGO500093 PO
[2021-02-21 09:52] LABS: BASOPHILS % (AUTO) 0.4 % (0.0-5.0); EOSINOPHILS % (AUTO) 1.2 % (0.0-8.0); HEMATOCRIT 41.8 % (36-48); LYMPHOCYTES % (AUTO) 19.8 % (21.0-51.0); MEAN CORPUSCULAR HEMOGLOBIN 26.9 pg (27.0-33.0); MEAN CORPUSCULAR HGB CONC 31.3 g/dL (32.0-36.0); MEAN CORPUSCULAR VOLUME 85.8 fL (79-99); MONOCYTES % (AUTO) 4.2 % (3.0-13.0); PLATELET COUNT (AUTO) 229 K/uL (130-400); RED BLOOD CELL COUNT(AUTO) 4.87 MIL/uL (4.00-5.50); RED CELL DISTRIBUTION WIDTH 13.8 % (11.0-15.5); WHITE BLOOD COUNT (AUTO) 8.3 K/uL (4.8-10.8)
[2021-02-21 10:05] LABS: ALBUMIN 3.6 g/dL (3.5-5.0); BILIRUBIN,TOTAL 0.5 mg/dL (0.2-1.0); CREATININE 0.8 mg/dL (0.5-1.5); CRP QUANTITATIVE 13.7 mg/L (0.00-9.0); POTASSIUM 3.8 mmol/L (3.5-5.1); TOTAL PROTEIN, SERUM 7.6 g/dL (6.0-8.3)
[2021-02-21 10:54] LABS: ERYTHROCYTE SEDIMENTATION RATE 35 MM/HR (0-20)
== END | disposition home or self-care (01) ==
LOC: LAB 08:29
PROVIDERS: ATTEND Internal Medicine
DX: Z79.899 Other long term (current) drug therapy (principal)
CPT/HCPCS: 36415; 80053; 85025; 85651; 86140

== ENCOUNTER → 2021-12-28 | Outpatient (CLI) | payer OTHER ==
[~2021-12-28] MED LIST changes: -ERGO500014 PO; +ERGO500093 PO
[2021-12-28 10:14] LABS: BASOPHILS % (AUTO) 0.3 % (0.0-5.0); EOSINOPHILS % (AUTO) 1.7 % (0.0-8.0); HEMATOCRIT 43.2 % (36-48); LYMPHOCYTES % (AUTO) 21.9 % (21.0-51.0); MEAN CORPUSCULAR HEMOGLOBIN 26.9 pg (27.0-33.0); MEAN CORPUSCULAR HGB CONC 31.5 g/dL (32.0-36.0); MEAN CORPUSCULAR VOLUME 85.5 fL (79-99); MONOCYTES % (AUTO) 5.8 % (3.0-13.0); NEUTROPHILS % (AUTO) 70.1 % (40.0-77.0); PLATELET COUNT (AUTO) 241 K/uL (130-400); RED BLOOD CELL COUNT(AUTO) 5.05 MIL/uL (4.00-5.50); RED CELL DISTRIBUTION WIDTH 14.3 % (11.0-15.5); WHITE BLOOD COUNT (AUTO) 9.4 K/uL (4.8-10.8)
[2021-12-28 10:22] LABS: HEMOGLOBIN A1C 5.9 % (4.0-6.0)
[2021-12-28 10:34] LABS: ALBUMIN 3.5 g/dL (3.5-5.0); BILIRUBIN,TOTAL 0.5 mg/dL (0.2-1.0); CREATININE 0.8 mg/dL (0.5-1.5); POTASSIUM 4.1 mmol/L (3.5-5.1); THYROID STIMULATING HORMONE 1.39 uIU/mL (0.36-3.74); TOTAL PROTEIN, SERUM 7.9 g/dL (6.0-8.3)
[2021-12-28 11:27] LABS: ERYTHROCYTE SEDIMENTATION RATE 48 MM/HR (0-20)
== END | disposition home or self-care (01) ==
LOC: LAB 09:26
PROVIDERS: ATTEND Nurse Practitioner Adult Health
DX: Z00.00 Encounter for general adult medical examination without abnormal findings (principal); R51.9 Headache, unspecified
CPT/HCPCS: 36415; 80053; 80061; 82306; 83036; 84443; 85025; 85651; 86140

== ENCOUNTER 2022-01-31 18:26 | Emergency (ER) | payer OTHER ==
[~2022-01-31] VITALS: Ht 165.1 cm; Wt 142.0 kg
[2022-01-31 20:20] LABS: BASOPHILS % (AUTO) 0.4 % (0.0-5.0); EOSINOPHILS % (AUTO) 0.2 % (0.0-8.0); HEMATOCRIT 43.4 % (36-48); LYMPHOCYTES % (AUTO) 22.2 % (21.0-51.0); MEAN CORPUSCULAR HEMOGLOBIN 26.7 pg (27.0-33.0); MEAN CORPUSCULAR HGB CONC 32.3 g/dL (32.0-36.0); MEAN CORPUSCULAR VOLUME 82.7 fL (79-99); MONOCYTES % (AUTO) 7.7 % (3.0-13.0); NEUTROPHILS % (AUTO) 69.1 % (40.0-77.0); PLATELET COUNT (AUTO) 147 K/uL (130-400); RED BLOOD CELL COUNT(AUTO) 5.25 MIL/uL (4.00-5.50); RED CELL DISTRIBUTION WIDTH 13.9 % (11.0-15.5); WHITE BLOOD COUNT (AUTO) 4.8 K/uL (4.8-10.8)
[2022-01-31 20:23] LABS: APPEARANCE,URINE Clear (CLEAR); BILIRUBIN,URINE Negative (NEGATIVE); COLOR,URINE Yellow (YELLOW); GLUCOSE, URINE (UA) Negative (NEGATIVE); KETONES,URINE Trace mg/dL (NEGATIVE); LEUKOCYTE ESTERASE ,URINE Small (NEGATIVE); NITRATE,URINE Negative (NEGATIVE); OCCULT BLOOD,URINE Negative (NEGATIVE); PROTEIN,URINE Negative (NEGATIVE)
[2022-01-31] MEDS ORDERED: 0.9%NACL 1000ML 1,000 ML IV ONE (20:30)
[2022-01-31] MEDS ORDERED: ACETAMINOPHEN 500 MG TABLET PO ONE (20:30)
[2022-01-31] MEDS ORDERED: PROCHLORPERAZINE EDISYLATE 5 MG/ML 2 ML VIAL IVP ONE (20:30)
[2022-01-31] MEDS ORDERED: PROCHLORPERAZINE 10MG/2ML INJ IVP ONE (20:30)
[2022-01-31] MEDS ORDERED: DiphenhydrAMINE HCL 50 MG/ML VIAL IV ONE (20:30)
[2022-01-31 20:31] LABS: CREATININE 0.8 mg/dL (0.5-1.5); POTASSIUM 3.8 mmol/L (3.5-5.1)
[2022-01-31 20:33] LABS: RBC,URINE 0-1 /HPF (0-1)
[2022-01-31 20:34] LABS: BACTERIA,URINE Moderate /HPF (None Seen); SQUAMOUS EPITHELIAL CELL,UR Moderate /HPF (0-2)
[2022-01-31 20:39] LABS: ALBUMIN 3.6 g/dL (3.5-5.0); BILIRUBIN,TOTAL 1.1 mg/dL (0.2-1.0); TOTAL PROTEIN, SERUM 7.8 g/dL (6.0-8.3)
[2022-02-01 00:10] VITALS: BP 130/82
== END 2022-02-01 00:12 | disposition left against medical advice (07) ==
LOC: EDH 18:26
DX: R51.9 Headache, unspecified (principal); R77.8 Other specified abnormalities of plasma proteins; M79.7 Fibromyalgia; Z79.899 Other long term (current) drug therapy
CPT/HCPCS: 36415; 70450; 80053; 81001; 81025; 84484 ×2; 85025; 87088; 93005; 96361; 96374; 96375; 99285; J0780; J1200; J7030

== ENCOUNTER → 2022-05-16 | Outpatient (CLI) | payer OTHER | END | disposition home or self-care (01) | LOC: RAH 13:11 | PROVIDERS: ATTEND Internal Medicine Cardiovascular Disease | DX: Z13.6 Encounter for screening for cardiovascular disorders (principal); Q21.1 Atrial septal defect; K44.9 Diaphragmatic hernia without obstruction or gangrene | CPT/HCPCS: 75571; 93306; 96374 ==

== ENCOUNTER → 2022-07-27 | Outpatient (CLI) | payer OTHER | END | disposition home or self-care (01) | LOC: RAH 12:45 | PROVIDERS: ATTEND Internal Medicine Cardiovascular Disease | DX: I87.1 Compression of vein (principal); I87.2 Venous insufficiency (chronic) (peripheral); M19.90 Unspecified osteoarthritis, unspecified site | CPT/HCPCS: 36415; 82306; 85651; 86038; 86140; 86200; 86215; 86235; 86431; 93970 ==

== ENCOUNTER → 2022-09-09 | Outpatient (CLI) | payer OTHER ==
[~2022-09-09] MED LIST changes: +IOHEXOL-350 50ML VIAL IV ONE
== END | disposition home or self-care (01) ==
LOC: RAH 08:05
PROVIDERS: ATTEND Nurse Practitioner Adult Health
DX: R59.0 Localized enlarged lymph nodes (principal); J32.0 Chronic maxillary sinusitis; K44.9 Diaphragmatic hernia without obstruction or gangrene
CPT/HCPCS: 70492; Q9967

== ENCOUNTER → 2022-10-31 | Outpatient (CLI) | payer OTHER ==
[~2022-10-31] MED LIST changes: -IOHEXOL-350 50ML VIAL IV ONE
[2022-10-31 10:54] LABS: BASOPHILS % (AUTO) 0.2 % (0.0-5.0); EOSINOPHILS % (AUTO) 1.7 % (0.0-8.0); HEMATOCRIT 41.4 % (36-48); LYMPHOCYTES % (AUTO) 30.1 % (21.0-51.0); MEAN CORPUSCULAR HGB CONC 32.9 g/dL (32.0-36.0); MEAN CORPUSCULAR VOLUME 82.3 fL (79-99); NEUTROPHILS % (AUTO) 63.4 % (40.0-77.0); PLATELET COUNT (AUTO) 193 K/uL (130-400); RED BLOOD CELL COUNT(AUTO) 5.03 MIL/uL (4.00-5.50); RED CELL DISTRIBUTION WIDTH 13.6 % (11.0-15.5); WHITE BLOOD COUNT (AUTO) 6.5 K/uL (4.8-10.8)
[2022-10-31 11:03] LABS: HEMOGLOBIN A1C 7.4 % (4.0-6.0)
[2022-10-31 11:15] LABS: ALBUMIN 3.4 g/dL (3.5-5.0); CREATININE 0.8 mg/dL (0.5-1.5); POTASSIUM 3.8 mmol/L (3.5-5.1); THYROID STIMULATING HORMONE 1.49 uIU/mL (0.36-3.74); TOTAL PROTEIN, SERUM 7.2 g/dL (6.0-8.3)
== END | disposition home or self-care (01) ==
LOC: LAB 09:49
PROVIDERS: ATTEND Nurse Practitioner Adult Health
DX: E03.8 Other specified hypothyroidism (principal); E55.9 Vitamin D deficiency, unspecified; E11.65 Type 2 diabetes mellitus with hyperglycemia; E78.2 Mixed hyperlipidemia; M19.90 Unspecified osteoarthritis, unspecified site; R53.83 Other fatigue
CPT/HCPCS: 36415; 80053; 80061; 82306; 83036; 84443; 85025; 85651; 86038; 86140; 86200; 86215; 86235; 86431

== ENCOUNTER → 2023-01-31 | Outpatient (CLI) | payer OTHER ==
[2023-01-31 10:06] LABS: CREATININE 0.7 mg/dL (0.5-1.5)
== END | disposition home or self-care (01) ==
LOC: LAB 08:46
PROVIDERS: ATTEND Psychiatry & Neurology Neurology
DX: R51.9 Headache, unspecified (principal)
CPT/HCPCS: 36415; 82565; 84520

== ENCOUNTER → 2023-02-06 | Outpatient (CLI) | payer OTHER ==
[~2023-02-06] MED LIST changes: +GADOTERATE MEGLUMINE 10 MMOL/20 ML VIAL IV ONE
== END | disposition home or self-care (01) ==
LOC: RAH 10:00
PROVIDERS: ATTEND Psychiatry & Neurology Neurology
DX: R51.9 Headache, unspecified (principal); J33.8 Other polyp of sinus
CPT/HCPCS: 70553; 70544; A9575

== ENCOUNTER → 2023-05-27 | Outpatient (CLI) | payer OTHER ==
[~2023-05-27] MED LIST changes: -GADOTERATE MEGLUMINE 10 MMOL/20 ML VIAL IV ONE
[2023-05-27 10:13] LABS: HEMATOCRIT 41.5 % (36-48); MEAN CORPUSCULAR HEMOGLOBIN 28.5 pg (27.0-33.0); MEAN CORPUSCULAR HGB CONC 32.5 g/dL (32.0-36.0); MEAN CORPUSCULAR VOLUME 87.6 fL (79-99); RED BLOOD CELL COUNT(AUTO) 4.74 MIL/uL (4.00-5.50); RED CELL DISTRIBUTION WIDTH 13.6 % (11.0-15.5); WHITE BLOOD COUNT (AUTO) 9.3 K/uL (4.8-10.8)
[2023-05-27 10:21] LABS: HEMOGLOBIN A1C 5.4 % (4.0-6.0)
[2023-05-27 10:45] LABS: ALBUMIN 3.6 g/dL (3.5-5.0); BILIRUBIN,TOTAL 0.5 mg/dL (0.2-1.0); CREATININE 0.7 mg/dL (0.5-1.5); POTASSIUM 3.6 mmol/L (3.5-5.1); THYROID STIMULATING HORMONE 1.23 uIU/mL (0.36-3.74); TOTAL PROTEIN, SERUM 7.4 g/dL (6.0-8.3)
[2023-05-27 11:06] LABS: APPEARANCE,URINE CLOUDY (CLEAR); BILIRUBIN,URINE NEGATIVE (NEGATIVE); COLOR,URINE LIGHT-YELLOW (YELLOW); GLUCOSE, URINE (UA) NEGATIVE (NEGATIVE); KETONES,URINE NEGATIVE (NEGATIVE); LEUKOCYTE ESTERASE ,URINE 500 Leu/uL (NEGATIVE); NITRATE,URINE NEGATIVE (NEGATIVE); OCCULT BLOOD,URINE NEGATIVE (NEGATIVE); PH,URINE 6.5 (5.0-8.0); PROTEIN,URINE NEGATIVE (NEGATIVE); UROBILINOGEN,URINE 0.2 mg/dL (0.2-1.0)
[2023-05-27 11:09] LABS: ADD UA MICROSCOPIC YES
[2023-05-27 11:13] LABS: MUCUS,URINE MOD LPF (None Seen); SQUAMOUS EPITHELIAL CELL,UR MANY /HPF (0-2); UNCLASSIFIED CRYSTAL 2 /HPF (None Seen); WBC,URINE 51-100 /HPF (0-1)
[2023-05-27 11:22] LABS: BACTERIA,URINE Moderate /HPF (None Seen); YEAST,URINE BUDDING NS /HPF (None Seen)
== END | disposition home or self-care (01) ==
LOC: LAB 08:54
PROVIDERS: ATTEND Nurse Practitioner Adult Health
DX: E11.65 Type 2 diabetes mellitus with hyperglycemia (principal); R31.9 Hematuria, unspecified
CPT/HCPCS: 36415; 80053; 80061; 81001; 82306; 83036; 84443; 85027; 85651; 86140; 87088

== ENCOUNTER → 2023-11-08 | Outpatient (CLI) | payer OTHER ==
[~2023-11-08] MED LIST changes: -IRBE300T18 PO; +IRBE300T26 PO
[2023-11-08 11:09] LABS: HEMATOCRIT 44.8 % (36-48); MEAN CORPUSCULAR HEMOGLOBIN 29.6 pg (27.0-33.0); MEAN CORPUSCULAR HGB CONC 33.3 g/dL (32.0-36.0); MEAN CORPUSCULAR VOLUME 89.1 fL (79-99); RED BLOOD CELL COUNT(AUTO) 5.03 MIL/uL (4.00-5.50); RED CELL DISTRIBUTION WIDTH 13.9 % (11.0-15.5); WHITE BLOOD COUNT (AUTO) 10.3 K/uL (4.8-10.8)
[2023-11-08 11:26] LABS: ALBUMIN 3.8 g/dL (3.5-5.0); BILIRUBIN,TOTAL 0.7 mg/dL (0.2-1.0); CREATININE 0.8 mg/dL (0.5-1.5); POTASSIUM 3.6 mmol/L (3.5-5.1); THYROID STIMULATING HORMONE 0.82 uIU/mL (0.36-3.74)
== END | disposition home or self-care (01) ==
LOC: LAB 10:02
PROVIDERS: ATTEND Nurse Practitioner Adult Health
DX: Z00.00 Encounter for general adult medical examination without abnormal findings (principal); E11.65 Type 2 diabetes mellitus with hyperglycemia; R53.83 Other fatigue; E78.2 Mixed hyperlipidemia; M06.9 Rheumatoid arthritis, unspecified; R85.1 Abnormal level of hormones in specimens from digestive organs and abdominal cavity; E03.8 Other specified hypothyroidism; E55.9 Vitamin D deficiency, unspecified; M25.50 Pain in unspecified joint
CPT/HCPCS: 36415; 80053; 80061; 82043; 82306; 82570; 83036; 84443; 85027; 86140

== ENCOUNTER → 2024-02-28 | Outpatient (CLI) | payer OTHER | END | disposition home or self-care (01) | LOC: RAH 12:10 | PROVIDERS: ATTEND Internal Medicine | DX: M25.512 Pain in left shoulder (principal); M25.511 Pain in right shoulder; M25.552 Pain in left hip; M25.551 Pain in right hip | CPT/HCPCS: 73030; 73521 ==